=== PATIENT | female | born 1960 | race Caucasian/White ===

== ENCOUNTER 2017-10-18 16:31 | Observation (INO) | payer OTHER ==
[~2017-10-18] VITALS: Ht 162.6 cm; Wt 76.0 kg
[~2017-10-18 16:31] MED LIST: B/P MED; CLIN1CAP5 PO
[2017-10-18 16:45] VITALS: BP 169/80; PULSE 75; RESP 16; TEMP 98.1; O2SAT 98
[2017-10-18] MEDS ORDERED: ASPIRIN 325 MG TAB PO ONE (17:30)
--- NOTE | 2017-10-18 17:32 | PD ---
HPI Chief Complaint: Abnormal Results Time Seen by Provider: 17:23 Travel History International Travel<30 days: No Contact w/Intl Traveler<30days: No Traveled to known affect area: No History of Present Illness HPI The patient was seen and examined in the presence of the nurse. This patient has had some intermittent chest heaviness and discomfort for the last 2 weeks. Sometimes it feels like it is harder for her to catch her breath. She has no pleuritic symptoms. No fever or wheezing or congestion or pneumonia symptoms. She has history of hypertension and not on medication. Blood pressures in the 170s at this time. She quit smoking 8 months ago. No history of stress testing or coronary artery disease or diagnosed pulmonary disease. Symptom severity is moderate. No alleviating factors. No exacerbating factors. PFSH Past Medical History Diminished Hearing: No Hypertension: Yes Social History Alcohol Use: Yes (3 DRINKS PER WEEK) Tobacco Use: No Substance Use: No Allergies-Medications (Allergen,Severity, Reaction): Coded Allergies: No Known Allergies (Verified Adverse Reaction, Unknown, 10/18/17) Reported Meds & Prescriptions Reported Meds & Active Scripts Active No Active Prescriptions or Reported Medications Review of Systems General / Constitutional: No: Fever Eyes: No: Visual changes HENT: No: Headaches Cardiovascular: Positive: Chest Pain or Discomfort Respiratory: No: Shortness of Breath Gastrointestinal: No: Abdominal Pain Genitourinary: No: Dysuria Musculoskeletal: No: Pain Skin: No Rash Neurologic: No: Weakness Psychiatric: No: Depression Endocrine: No: Polydipsia Hematologic/Lymphatic: No: Easy Bruising Physical Exam Narrative GENERAL: Well-nourished, well-developed patient in no apparent distress. SKIN: Focused skin assessment reveals no rash and nodules. Skin is Warm and dry. HEAD: Atraumatic. Normocephalic. EYES: Pupils equal and round. No scleral icterus. No injection or drainage. ENT: No nasal bleeding or discharge. Mucous membranes pink and moist. NECK: Trachea midline. No JVD. CARDIOVASCULAR: Regular rate and rhythm. No murmur appreciated. RESPIRATORY: No accessory muscle use. Clear to auscultation. Breath sounds equal bilaterally. GASTROINTESTINAL: Abdomen soft, non-tender, nondistended. Hepatic and splenic margins not palpable. MUSCULOSKELETAL: No obvious deformities. No clubbing. No cyanosis. No edema. NEUROLOGICAL: Awake and alert. No obvious cranial nerve deficits. Motor grossly within normal limits. Normal speech. PSYCHIATRIC: Appropriate mood and affect; insight and judgment normal. Data Data Last Documented VS Vital Signs Date Time Temp Pulse Resp B/P (MAP) Pulse Ox O2 Delivery O2 Flow Rate FiO2 10/18/17 17:36 78 20 194/94 (127) 98 10/18/17 16:45 98.1 Orders Orders Electrocardiogram (10/18/17 17:22) Complete Blood Count With Diff (10/18/17 17:22) Basic Metabolic Panel (Bmp) (10/18/17 17:22) Ckmb (Isoenzyme) Profile (10/18/17 17:22) Troponin I (10/18/17 17:22) Chest, Single Ap (10/18/17 17:22) Iv Access Insert/Monitor (10/18/17 17:22) Ecg Monitoring (10/18/17 17:22) Oxygen Administration (10/18/17 17:22) Oximetry (10/18/17 17:22) Aspirin (Aspirin) (10/18/17 17:30) Clonidine (Catapres) (10/18/17 17:45) CKMB (10/18/17 17:35) CKMB% (10/18/17 17:35) Admit Order (Ed Use Only) (10/18/17 18:42) Labs Laboratory Tests Test 10/18/17 17:35 White Blood Count 8.0 TH/MM3 Red Blood Count 4.57 MIL/MM3 Hemoglobin 13.8 GM/DL Hematocrit 40.5 % Mean Corpuscular Volume 88.6 FL Mean Corpuscular Hemoglobin 30.1 PG Mean Corpuscular Hemoglobin Concent 34.0 % Red Cell Distribution Width 12.6 % Platelet Count 220 TH/MM3 Mean Platelet Volume 9.0 FL Neutrophils (%) (Auto) 66.6 % Lymphocytes (%) (Auto) 22.6 % Monocytes (%) (Auto) 7.7 % Eosinophils (%) (Auto) 2.7 % Basophils (%) (Auto) 0.4 % Neutrophils # (Auto) 5.4 TH/MM3 Lymphocytes # (Auto) 1.8 TH/MM3 Monocytes # (Auto) 0.6 TH/MM3 Eosinophils # (Auto) 0.2 TH/MM3 Basophils # (Auto) 0.0 TH/MM3 CBC Comment DIFF FINAL Differential Comment Blood Urea Nitrogen 20 MG/DL Creatinine 0.82 MG/DL Random Glucose 84 MG/DL Calcium Level 9.3 MG/DL Sodium Level 137 MEQ/L Potassium Level 3.9 MEQ/L Chloride Level 105 MEQ/L Carbon Dioxide Level 26.6 MEQ/L Anion Gap 5 MEQ/L Estimat Glomerular Filtration Rate 72 ML/MIN Total Creatine Kinase 109 U/L Creatine Kinase MB 1.1 NG/ML Troponin I LESS THAN 0.02 NG/ML MDM Medical Decision Making Medical Screen Exam Complete: Yes Emergency Medical Condition: Yes Medical Record Reviewed: Yes Differential Diagnosis Differential diagnosis includes MT, angina, pericarditis, pleurisy, GERD, anxiety. Narrative Course I have reviewed the patient's electronic medical record. I gave her an aspirin I reviewed her EKG which shows sinus rhythm and no ST elevation I reviewed her chest x-ray which is negative Labs sent Gave her dose of clonidine and will reassess her blood pressure which is accelerated Labs are normal including cardiac enzymes and general blood counts and metabolic studies Blood pressure now 151 systolic She will be a 23 hour observation in the chest pain center in order to rule out cardiac cause of her symptoms. She has multiple risk factors including hypertension and ex-smoker Diagnosis Primary Impression: Chest pain Qualified Codes: R07.9 - Chest pain, unspecified Additional Impressions: Accelerated hypertension Ex-smoker Admitting Information Admitting Physician Requests: Observation Scripts No Active Prescriptions or Reported Luis Doran MD Oct 18, 2017 17:32
[2017-10-18 17:36] VITALS: BP 194/94; PULSE 78; RESP 20; O2SAT 97; O2SAT 98
[2017-10-18 17:40] LABS: AUTOMATED NEUTROPHIL # 5.4 TH/MM3 (1.8-7.7); BASOPHIL % 0.4 % (0.0-2.0); EOSINOPHIL # 0.2 TH/MM3 (0-0.4); EOSINOPHIL % 2.7 % (0.0-4.0); HEMATOCRIT 40.5 % (35.0-46.0); HEMOGLOBIN 13.8 GM/DL (11.6-15.3); LYMPH % 22.6 % (9.0-44.0); LYMPHOCYTE # 1.8 TH/MM3 (1.0-4.8); MEAN CELL VOLUME 88.6 FL (80.0-100.0); MEAN CORPUSCULAR HEMOGLOBIN 30.1 PG (27.0-34.0); MONO % 7.7 % (0.0-8.0); MONOCYTE # 0.6 TH/MM3 (0-0.9); NEUT % 66.6 % (16.0-70.0); PLATELET COUNT 220 TH/MM3 (150-450); RED BLOOD COUNT 4.57 MIL/MM3 (4.00-5.30); RED CELL DISTRIBUTION WIDTH 12.6 % (11.6-17.2)
[2017-10-18] MEDS ORDERED: cloNIDine HCL 0.1 MG TAB PO ONE (17:45)
--- NOTE | 2017-10-18 17:56 | RADRPT ---
EXAM DATE/TIME: 10/18/2017 17:44 [facility] COMPARISON: No previous studies available for comparison. INDICATIONS : Shortness of breath. MEDICAL HISTORY : None. SURGICAL HISTORY : None. ENCOUNTER: Initial ACUITY: 1 day PAIN SCORE: 0/10 LOCATION: Bilateral chest FINDINGS: A single view of the chest demonstrates the lungs to be symmetrically aerated without evidence of mas s, infiltrate or effusion. Mild biapical pleural thickening. The cardiomediastinal contours are unre markable. Osseous structures are intact. CONCLUSION: No acute disease Noé Sidhu MD on October 18, 2017 at 17:53 Board Certified Radiologist. This report was verified electronically.
[2017-10-18 18:04] LABS: CHLORIDE 105 MEQ/L (98-107); SODIUM (NA) 137 MEQ/L (136-145)
[2017-10-18 18:06] LABS: CALCIUM 9.3 MG/DL (8.5-10.1)
[2017-10-18 18:07] LABS: BICARBONATE 26.6 MEQ/L (21.0-32.0); BLOOD UREA NITROGEN 20 MG/DL (7-18); GLUCOSE,RANDOM 84 MG/DL (74-106)
[2017-10-18 18:10] LABS: CREATININE 0.82 MG/DL (0.50-1.00); GLOMERULAR FILTRATION RATE 72 ML/MIN (>89)
[2017-10-18 18:15] LABS: TROPONIN I LESS THAN 0.02 NG/ML (0.02-0.05)
[2017-10-18 18:47] VITALS: BP 151/85; PULSE 71; RESP 20; O2SAT 99
[2017-10-18] MEDS ORDERED: ACETAMINOPHEN/HYDROcodone 325 MG/7.5 MG TAB PO PRN (19:00)
[2017-10-18] MEDS ORDERED: MORPHINE SULFATE 4 MG/ML INJ IV PUSH PRN (19:00)
[2017-10-18] MEDS ORDERED: NITROGLYCERIN 0.4 MG SL 25 TABS/BTL SL PRN (19:00)
[2017-10-18] MEDS ORDERED: ONDANSETRON HCL 4 MG/2 ML VIAL IV PUSH PRN (19:00)
[2017-10-18] MEDS ORDERED: SODIUM CHLORIDE 0.9% FLUSH 10 ML FLUSH IV FLUSH PRN (19:00)
[2017-10-18 20:12] VITALS: BP 119/74; PULSE 62; RESP 18; O2SAT 99
[2017-10-18 20:36] LABS: TROPONIN I LESS THAN 0.02 NG/ML (0.02-0.05)
[2017-10-18] MEDS: SODIUM CHLORIDE 0.9% FLUSH 10 ML FLUSH IV FLUSH SCH (20:43)
[2017-10-18 21:05] VITALS: BP 131/63; PULSE 69; RESP 20; TEMP 98.2; O2SAT 96
[2017-10-18 22:14] LABS: TROPONIN I LESS THAN 0.02 NG/ML (0.02-0.05)
[2017-10-19] VITALS: BP 129/70; PULSE 70; RESP 18; TEMP 98; O2SAT 97
[2017-10-19 00:17] VITALS: BP 129/70; PULSE 70; RESP 18; TEMP 98; O2SAT 97
[2017-10-19 04:59] VITALS: BP 117/65; PULSE 66; RESP 16; TEMP 97.7; O2SAT 96
[2017-10-19 07:22] LABS: AUTOMATED NEUTROPHIL # 3.7 TH/MM3 (1.8-7.7); BASOPHIL % 0.5 % (0.0-2.0); EOSINOPHIL # 0.3 TH/MM3 (0-0.4); EOSINOPHIL % 4.8 % (0.0-4.0); HEMATOCRIT 37.5 % (35.0-46.0); HEMOGLOBIN 12.9 GM/DL (11.6-15.3); LYMPH % 23.9 % (9.0-44.0); LYMPHOCYTE # 1.5 TH/MM3 (1.0-4.8); MEAN CELL VOLUME 89.6 FL (80.0-100.0); MEAN CORPUSCULAR HEMOGLOBIN 30.9 PG (27.0-34.0); MEAN CORPUSCULAR HGB CONC 34.5 % (32.0-36.0); MEAN PLATELET VOLUME 9.3 FL (7.0-11.0); MONO % 9.1 % (0.0-8.0); MONOCYTE # 0.6 TH/MM3 (0-0.9); NEUT % 61.7 % (16.0-70.0); PLATELET COUNT 160 TH/MM3 (150-450); RED BLOOD COUNT 4.19 MIL/MM3 (4.00-5.30); RED CELL DISTRIBUTION WIDTH 12.1 % (11.6-17.2); WHITE BLOOD COUNT 6.1 TH/MM3 (4.0-11.0)
[2017-10-19 07:32] VITALS: O2SAT 96
[2017-10-19 07:34] LABS: CHLORIDE 105 MEQ/L (98-107); SODIUM (NA) 139 MEQ/L (136-145)
[2017-10-19 07:37] LABS: CALCIUM 8.9 MG/DL (8.5-10.1)
[2017-10-19 07:38] LABS: ALBUMIN 3.3 GM/DL (3.4-5.0); BICARBONATE 27.7 MEQ/L (21.0-32.0); BLOOD UREA NITROGEN 20 MG/DL (7-18); GLUCOSE,RANDOM 91 MG/DL (74-106)
[2017-10-19 07:41] LABS: ALT (GPT) 23 U/L (10-53); AST (GOT) 21 U/L (15-37); CREATININE 0.72 MG/DL (0.50-1.00); GLOMERULAR FILTRATION RATE 83 ML/MIN (>89)
[2017-10-19 07:42] LABS: TOTAL BILIRUBIN ADULT 0.4 MG/DL (0.2-1.0); TOTAL PROTEIN 7.2 GM/DL (6.4-8.2)
[2017-10-19 07:44] LABS: ALKALINE PHOSPHATASE 113 U/L (45-117)
[2017-10-19 07:46] LABS: TROPONIN I LESS THAN 0.02 NG/ML (0.02-0.05)
--- NOTE | 2017-10-19 07:52 | HHI.HP ---
[facility] Natanael Owen MD Admission Diagnosis chest pain Diagnoses: (1) Chest pain Diagnosis: Principal (2) Elevated blood pressure reading Diagnosis: Principal Chief Complaint: Shortness of breath, difficulty breathing, chest heaviness Travel History International Travel<30 Days: No Contact w/Intl Traveler <30 Da: No Traveled to Known Affected Are: No History of Present Illness 57-year-old female with known history of hypertension, tobacco use who presented to the hospital because of a two-week history of dyspnea, shortness of breath, chest heaviness. Patient states that over last 2 weeks she has been experiencing intermittent discomfort where she is having difficulty catching her breath, there has been episodes where she is woke up in the middle of night unable to catch her breath. She states that if she takes a couple deep breaths it usually goes away on its own but then returns in 30 minutes to 2 hours. Patient was self treating herself with deep breathing until yesterday when the discomfort came on and it did not go away. She went to her primary medical doctor's office and they performed an EKG which her primary medical doctor indicated that there are some abnormalities that she should go to the emergency department. Patient denies any worsening with exertion, denies any nausea, vomiting, radiation, lightheadedness, dizziness, diaphoresis. Patient had a workup done emergency department, on initial presentation she had accelerated hypertension, however that has resolved and normal at this time. Patient indicates that she has not had any other symptoms since presenting to the emergency department. ER physician recommended patient be observed in the chest pain center. Review of Systems Respiratory: COMPLAINS OF: Shortness of breath Cardiovascular: COMPLAINS OF: Chest pain, Dyspnea on Exertion, PND Past Family Social History Past Medical History History of hypertension History of tobacco use Past Surgical History No previous surgery Reported Medications Reported Meds & Active Scripts Active No Active Prescriptions or Reported Medications Allergies: Coded Allergies: No Known Allergies (Verified Adverse Reaction, Unknown, 10/18/17) Family History Family history was reviewed and mother is alive at 85 with family history of heart disease. Father is but medical history is unknown Social History Patient quit smoking 8 months ago, prior to that she smoked one half pack of cigarettes a day since she was 17 years old. Does use alcohol rarely. Denies any illicit drug use Physical Exam Vital Signs Vital Signs Date Time Temp Pulse Resp B/P (MAP) Pulse Ox O2 Delivery O2 Flow Rate FiO2 10/19/17 07:32 96 21 10/19/17 04:59 97.7 66 16 117/65 (82) 96 10/19/17 00:17 98.0 70 18 129/70 (89) 97 10/19/17 00:00 98.0 70 18 129/70 (89) 97 10/18/17 21:05 98.2 69 20 131/63 (85) 96 10/18/17 21:05 96 21 10/18/17 20:38 10/18/17 20:12 62 18 119/74 (89) 99 Nasal Cannula 2.00 10/18/17 18:47 71 20 151/85 (107) 99 10/18/17 17:36 78 20 194/94 (127) 98 10/18/17 17:36 97 10/18/17 16:45 98.1 75 16 169/80 (109) 98 Physical Exam GENERAL: Well-developed, well-nourished, in no acute distress. alert and orientated HEENT: Head is normocephalic without any lesions or masses noted. Facial features are symmetric. Eyes: Pupils equal round reactive to light. Extraocular muscles are intact. Conjunctivae were clear. Oropharyngeal: Pharynx without any erythema edema. Tongue is midline without deviation. Buccal mucosa is moist without any masses or lesions NECK: Supple without any masses. Trachea midline no deviation. No JVD, no bruits are appreciated CARDIAC: Regular rhythm, regular rate. S1/S2 are heard. No murmurs gallops or rubs. LUNGS: Clear to auscultation bilaterally. No wheeze, rhonchi or rales. No use of accessory muscles on inspiration or expiration. ABDOMEN: Soft, nontender. Nondistended. Bowel sounds heard in all 4 quadrants. No organomegaly or masses. Negative rebound, negative guarding EXTREMITIES: No edema, pulses are equal bilaterally. No cyanosis or clubbing NEUROLOGY: Mood and affect appear appropriate. Cranial nerves II through XII grossly intact. Muscle strength 5/5 in upper and lower extremities bilaterally. Deep tendon reflexes are 2+ in upper and lower extremities bilaterally. Laboratory Laboratory Tests Test 10/18/17 17:35 10/18/17 20:15 10/18/17 21:45 10/19/17 06:10 White Blood Count 8.0 6.1 Red Blood Count 4.57 4.19 Hemoglobin 13.8 12.9 Hematocrit 40.5 37.5 Mean Corpuscular Volume 88.6 89.6 Mean Corpuscular Hemoglobin 30.1 30.9 Mean Corpuscular Hemoglobin Concent 34.0 34.5 Red Cell Distribution Width 12.6 12.1 Platelet Count 220 160 Mean Platelet Volume 9.0 9.3 Neutrophils (%) (Auto) 66.6 61.7 Lymphocytes (%) (Auto) 22.6 23.9 Monocytes (%) (Auto) 7.7 9.1 Eosinophils (%) (Auto) 2.7 4.8 Basophils (%) (Auto) 0.4 0.5 Neutrophils # (Auto) 5.4 3.7 Lymphocytes # (Auto) 1.8 1.5 Monocytes # (Auto) 0.6 0.6 Eosinophils # (Auto) 0.2 0.3 Basophils # (Auto) 0.0 0.0 CBC Comment DIFF FINAL DIFF FINAL Differential Comment Blood Urea Nitrogen 20 20 Creatinine 0.82 0.72 Random Glucose 84 91 Calcium Level 9.3 8.9 Sodium Level 137 139 Potassium Level 3.9 3.5 Chloride Level 105 105 Carbon Dioxide Level 26.6 27.7 Anion Gap 5 6 Estimat Glomerular Filtration Rate 72 83 Total Creatine Kinase 109 90 84 Creatine Kinase MB 1.1 Troponin I LESS THAN 0.02 LESS THAN 0.02 LESS THAN 0.02 LESS THAN 0.02 Total Protein 7.2 Albumin 3.3 Alkaline Phosphatase 113 Aspartate Amino Transf (AST/SGOT) 21 Alanine Aminotransferase (ALT/SGPT) 23 Total Bilirubin 0.4 Result Diagram: 10/19/17 0610 10/19/17 0610 Imaging Last Impressions Chest X-Ray 10/18/17 1722 Signed Impressions: Service Date/Time: Wednesday, October 18, 2017 17:44 - CONCLUSION: No acute disease MD Rocael Ramos VTE Risk Assessment Rocael VTE Risk Assessment: No/Low Risk (score <= 1) Reggierini Risk Assessment Model Point Value = 1 Point Value = 2 Point Value = 3 Point Value = 5 Age 41-60 Minor surgery BMI > 25 kg/m2 Swollen legs Varicose veins or History of unexplained or recurrent spontaneous Oral contraceptives or hormone replacement Sepsis (< 1 month) Serious lung disease, including pneumonia (< 1 month) Abnormal pulmonary function Acute myocardial infarction Congestive heart failure (< 1 month) History of inflammatory bowel disease Medical patient at bed rest Age 61-74 Arthroscopic surgery Major open surgery (> 45 min) Laparoscopic surgery (> 45 min) Malignancy Confined to bed (> 72 hours) Immobilizing plaster cast Central venous access Age >= 75 History of VTE Family history of VTE Factor V Leiden Prothrombin [id number] Lupus anticoagulant Anticardiolipin antibodies Elevated serum homocysteine Heparin-induced thrombocytopenia Other congenital or acquired thrombophilia Stroke (< 1 month) Elective arthroplasty Hip, pelvis, or leg fracture Acute spinal cord injury (< 1 month) Prophylaxis Regimen Total Risk Factor Score Risk Level Prophylaxis Regimen 0-1 Low Early ambulation 2 Moderate Order ONE of the following: *Sequential Compression Device (SCD) *Heparin 5000 units SQ BID 3-4 Higher Order ONE of the following medications: *Heparin 5000 units SQ TID *Enoxaparin/Lovenox 40 mg SQ daily (WT < 150 kg, CrCl > 30 mL/min) *Enoxaparin/Lovenox 30 mg SQ daily (WT < 150 kg, CrCl > 10-29 mL/min) *Enoxaparin/Lovenox 30 mg SQ BID (WT < 150 kg, CrCl > 30 mL/min) AND/OR *Sequential Compression Device (SCD) 5 or more Highest Order ONE of the following medications: *Heparin 5000 units SQ TID (Preferred with Epidurals) *Enoxaparin/Lovenox 40 mg SQ daily (WT < 150 kg, CrCl > 30 mL/min) *Enoxaparin/Lovenox 30 mg SQ daily (WT < 150 kg, CrCl > 10-29 mL/min) *Enoxaparin/Lovenox 30 mg SQ BID (WT < 150 kg, CrCl > 30 mL/min) AND *Sequential Compression Device (SCD) Assessment and Plan Assessment and Plan Chest pain Patient with increased risk factors include age, elevated blood pressure, history of tobacco use Patient has been ruled out for acute coronary event with serial cardiac enzymes are negative Serial EKGs reviewed by myself and shows right bundle branch block without any changes Myocardial perfusion study was performed and indicated no signs of reversible ischemia, low risk Patient continued on aspirin, nitroglycerin, [place], morphine for pain, oxygen as needed Elevated blood pressure, resolved Monitor blood pressure DVT prevention Low risk, early ambulation Discharge disposition Discharge home in stable condition Activity: Ad juarez. Diet: Healthy heart diet Medication per medication reconciliation Follow-up with primary medical doctor in 1 week Problem Qualifiers (1) Chest pain: Qualified Codes: R07.9 - Chest pain, unspecified Luis Deluca Oct 19, 2017 07:51
[2017-10-19 08:00] VITALS: BP 127/68; PULSE 68; RESP 18; TEMP 97.3; O2SAT 94
[2017-10-19] MEDS ORDERED: ASPIRIN 325 MG TAB PO SCH (09:00)
[2017-10-19] MEDS: SODIUM CHLORIDE 0.9% FLUSH 10 ML FLUSH IV FLUSH SCH (09:32)
[2017-10-19] MEDS ORDERED: REGADENOSON INJ 0.4 MG/5 ML SYR IV ONE (10:18)
--- NOTE | 2017-10-19 11:30 | RADRPT ---
EXAM DATE/TIME: 10/19/2017 10:05 [facility] COMPARISON: No previous studies available for comparison. INDICATIONS : Susbternal chest pain with dyspnea. Angina. Abnormal EKG. DOSE: 25.4 mCi Tc99m Myoview at stress. 8.5 mCi Tc99m Myoview at rest. 0.4 mg Lexiscan STRESS SYMPTOMS: Chest pressure, back pain and headache. EJECTION FRACTION: 51% MEDICAL HISTORY : Hypertension. SURGICAL HISTORY : None. ENCOUNTER: Initial ACUITY: 2 days PAIN SCALE: 6/10 LOCATION: Substernal chest TECHNIQUE: The patient underwent pharmacologic stress with infusion of prescribed dose. Continuous ECG tracing was monitored during stress. Gated SPECT imaging was performed after stress and conventional SPECT i maging was performed at rest. The examination was performed on a SPECT/CT scanner, both attenuation and non-corrected datasets were reviewed. FINDINGS: DISTRIBUTION: The maximum perfused segment at stress is in the inferior wall. PERFUSION STUDY: The pattern of perfusion at stress is within normal limits. GATED STUDY: There is apparent hypokinesis involving the apex. CONCLUSION: 1. Apparent area of hypokinesis involving the apex with normal patent ejection fraction of 51%. 2. No definite fixed or reversible wall defects to suggest ischemia. RISK CATEGORY: Low (<1% Annual Mortality Rate) Eliseo Whitaker MD on October 19, 2017 at 11:23 Board Certified Radiologist. This report was verified electronically.
--- NOTE | 2017-10-19 11:47 | HHI.DCPOC ---
Discharge Care Plan Diagnosis: (1) Chest pain (2) Elevated blood pressure reading Goals to Promote Your Health * To prevent worsening of your condition and complications * To maintain your health at the optimal level Directions to Meet Your Goals Take your medications as prescribed Follow your dietary instruction Follow activity as directed Keep your appointments as scheduled Take your immunizations and boosters as scheduled If your symptoms worsen call your PCP, if no PCP go to Urgent Care Center or Emergency Room Smoking is Dangerous to Your Health. Avoid second hand smoke Call the 24-hour hour crisis hotline for domestic abuse at Luis Deluca Oct 19, 2017 11:47
[2017-10-19 12:00] VITALS: BP 143/78; PULSE 86; RESP 18; TEMP 97.9; O2SAT 95
--- NOTE | 2017-10-19 13:55 | EKG ---
Date Performed: 10/18/2017 Time Performed: 16:52:28 PTAGE: 57 years EKG: Sinus rhythm POSSIBLE LEFT ATRIAL ENLARGEMENT RIGHT BUNDLE BRANCH BLOCK ABNORMAL ECG NO PREVIOUS TRACING DOCTOR: Parish Sevilla Interpretating Date/Time 10/19/2017 13:53:31
--- NOTE | 2017-10-19 14:35 | EKG ---
Date Performed: 10/18/2017 Time Performed: 21:37:16 PTAGE: 57 years EKG: Sinus rhythm RIGHT BUNDLE BRANCH BLOCK ABNORMAL ECG Since PREVIOUS TRACING , no significant change noted PREVIOUS TRACIN10/18/2017 19.20 DOCTOR: Parish Sevilla Interpretating Date/Time 10/19/2017 14:34:14
--- NOTE | 2017-10-19 14:35 | EKG ---
Date Performed: 10/18/2017 Time Performed: 19:20:32 PTAGE: 57 years EKG: Sinus rhythm RIGHT BUNDLE BRANCH BLOCK ABNORMAL ECG Since PREVIOUS TRACING , no significant change noted PREVIOUS TRACIN10/18/2017 16.52 DOCTOR: Parish Sevilla Interpretating Date/Time 10/19/2017 14:34:25
--- NOTE | 2017-10-19 18:06 | TR ---
Date Performed: 10/19/2017 Time Performed: 10:27:04 DOCTOR: Sreedhar Guevara DRUG LIST: CLINICAL HISTORY: CHEST PAIN REASON FOR TEST: Chest pain REASON FOR ENDING: OBSERVATION: CONCLUSION: Lexiscan stress test was performed under standard four minute protocol. Radionuclid e was injected one minute prior to ending the test. No electrocardiographic abormalities were present to suggest ischemia. Nuclear imaging and interpretation are pending. COMMENTS:
== END 2017-10-19 13:50 | disposition home or self-care (01) ==
LOC: PHED 16:31 → PHEDA 18:43 → PH3A 20:40
PROVIDERS: ADMIT Hospitalist; ATTEND Hospitalist
DX: R07.89 Other chest pain (principal); I10 Essential (primary) hypertension; R06.02 Shortness of breath; R94.31 Abnormal electrocardiogram [ECG] [EKG]; Z87.891 Personal history of nicotine dependence
CPT/HCPCS: 71045; 78452; 80048; 80053; 82550; 82552; 84484; 85025; 93005; 93017; 99285; A9502; G0378; J2785